=== PATIENT | male | born 1975 | race Caucasian/White ===

== ENCOUNTER 2019-10-29 15:13 | Emergency (ER) | payer OTHER ==
[~2019-10-29] VITALS: Ht 188 cm; Wt 124.7 kg
[2019-10-29] MEDS ORDERED: LOSARTAN POTAS100 MG PO (15:22)
[2019-10-29 15:50] LABS: ABSOLUTE EOSINOPHILS 0.2 thou/uL (0.0-0.7); ABSOLUTE LYMPHOCYTES 1.8 thou/uL (0.8-5.3); ABSOLUTE MONOCYTES 0.3 thou/uL (0.0-1.2); ABSOLUTE NEUTROPHILS 3.6 thou/uL (1.6-8.1); BASOPHILS 0.6 %; EOSINOPHILS 2.6 %; HEMATOCRIT 42.6 % (42.0-52.0); HEMOGLOBIN 14.8 gm/dL (14.0-18.0); LYMPHOCYTES 30.5 %; MCH 33.8 pg (26.0-34.0); MCHC 34.9 g/dL (28.0-37.0); MCV 96.9 fL (80.0-100.0); MONOCYTES 5.5 %; MPV 9.3 fl. (7.2-11.1); NUCLEATED RBCS 0 /100WBC; PLATELET COUNT* 156 thou/uL (150-400); POLYS 60.8 %; RBC 4.39 mil/uL (4.50-6.00); RDW-CV 13.2 % (10.5-14.5); WBC 5.9 thou/uL (4.0-11.0)
[2019-10-29 15:59] LABS: APTT 22.2 Seconds (25.0-31.3); PROTIME 10.3 Seconds (9.20-11.50)
[2019-10-29 16:02] LABS: CALCIUM 8.3 mg/dL (8.5-10.1); CREATININE 1.3 mg/dL (0.6-1.3); POTASSIUM 3.4 mmol/L (3.5-5.1)
[2019-10-29 16:09] LABS: URINE BILIRUBIN NEGATIVE (Negative); URINE BLOOD NEGATIVE (Negative); URINE CLARITY CLEAR; URINE COLOR YELLOW; URINE GLUCOSE-RANDOM NEGATIVE (Negative); URINE KETONES NEGATIVE (Negative); URINE LEUKOCYTES-REFLEX NEGATIVE (Negative); URINE NITRITE-REFLEX NEGATIVE (Negative); URINE PROTEIN NEGATIVE (Negative); URINE UROBILINOGEN 0.2 E.U./dl (0.2-1.0)
[2019-10-29 16:09] LABS: ALBUMIN 3.7 g/dL (3.4-5.0); TOTAL BILIRUBIN 0.4 mg/dL (<0.1-1.0); TOTAL PROTEIN 6.9 g/dL (6.4-8.2)
[2019-10-29 16:18] LABS: AMP/METHAMP Negative (Negative); BARBITURATES Negative (Negative); BENZODIAZEPINES Negative (Negative); COCAINE Negative (Negative); METHADONE Negative (Negative); OPIATES Negative (Negative); PCP Negative (Negative); THC Negative (Negative)
[2019-10-29 17:57] VITALS: BP 153/66
--- NOTE | 2019-10-30 10:23 | EKG ---
[place] [id number] ELECTROCARDIOGRAM REPORT Name: VENITA FRIEDMAN Room: [facility]#: [id number] Admission: 10/29/19 Attend Phys: Discharge: 10/29/19 Date of : 71 Date of Service: 10/29/19 1518 Report #: [id number] THIS REPORT FOR: //name// [facility] ED Test Date: 2019-10-29 Test Time: 15:18:43 Pat Name: VENITA FRIEDMAN Department: Room: Gender: [employer]: TJ : 1975 Requested By: Moriah Marcelo Order Number: [id number] MD: Tomasz Fenton Measurements Intervals [place] Rate: 64 P: 38 TX: 166 QRS: 52 QRSD: 120 T: 38 QT: 407 QTc: 420 Interpretive Statements Sinus rhythm Nonspecific intraventricular conduction delay ST elev, probable normal early repol pattern No previous ECG available for comparison Electronically Signed On 10-30-2019 10:21:59 CDT by Tomasz Fenton [email or web address] <ELECTRONICALLY SIGNED> By: Tika Fenton MD, [facility] 10/30/19 1021 1518 1518 Tika Fenton MD, [facility] /EPI
== END 2019-10-29 17:58 | disposition home or self-care (01) ==
LOC: M.ERS 15:13
PROVIDERS: Physician Assistant
DX: S61.011A Laceration without foreign body of right thumb without damage to nail, initial encounter (principal); R55 Syncope and collapse; I10 Essential (primary) hypertension; Z79.899 Other long term (current) drug therapy; W26.0XXA Contact with knife, initial encounter; Y93.89 Activity, other specified; Y92.090 Kitchen in other non-institutional residence as the place of occurrence of the external cause; Y99.8 Other external cause status